=== PATIENT | female | born 1985 | race Caucasian/White ===

== ENCOUNTER 2017-03-12 20:28 | Emergency (ER) | payer OTHER, MEDICARE, BC ==
[~2017-03-12] VITALS: Ht 154.9 cm; Wt 64.0 kg
[~2017-03-12 20:28] MED LIST: NOHOMEMEDS
[2017-03-12 21:08] VITALS: BP 151/95
== END 2017-03-12 21:51 | disposition left against medical advice (07) ==
LOC: EME 20:28
DX: T23.001A Burn of unspecified degree of right hand, unspecified site, initial encounter (principal); Z53.21 Procedure and treatment not carried out due to patient leaving prior to being seen by health care provider